=== PATIENT | male | born 1975 | race Asian ===

== ENCOUNTER → 2017-09-04 | Outpatient (CLI) | payer MEDICARE, OTHER | END | disposition home or self-care (01) | LOC: RADPV 08:56 | PROVIDERS: ATTEND Orthopaedic Surgery | DX: S73.001A Unspecified subluxation of right hip, initial encounter (principal); Q65.89 Other specified congenital deformities of hip; X58.XXXA Exposure to other specified factors, initial encounter; Y93.89 Activity, other specified; Y92.89 Other specified places as the place of occurrence of the external cause; Y99.8 Other external cause status | CPT/HCPCS: 72170 ==